=== PATIENT | male | born 1945 | race Caucasian/White ===

== ENCOUNTER 2023-10-07 19:36 | Outpatient (CLI) | payer MEDICARE | END 2023-10-07 23:59 | disposition EMS.NT | LOC: EMS 19:36 | DX: Z03.89 Encounter for observation for other suspected diseases and conditions ruled out (principal) ==

== ENCOUNTER 2023-10-08 16:34 | Emergency (ER) | payer MEDICARE ==
[2023-10-08 17:08] VITALS: O2SAT 98
--- NOTE | 2023-10-08 17:32 | ED Physician Documentation ---
History of Present Illness - Stated complaint Stated Complaint: FALL - Chief complaint Chief Complaint: Trauma Ext - History obtained from History obtained from: Patient - Additonal information Additional information: 78-year-old male who has a history of a prior stroke and recent CABG presents after a fall yesterday from his wheelchair. He is on anticoagulation.He hit his forehead on the ground, there is no loss of consciousness. He also fell onto his left hand and sustained a skin tear and some discomfort of his left hand and wrist. No other injuries during the fall. They apparently called their insurance company or care provider who advised that it is "through policy" to have them being seen in the ER after a fall therefore they are here today. Patient has not had any change in mental status, no confusion, had a mild headache yesterday but none today, no other concerns. He Review of Systems Constitutional: reports: Reviewed and negative Eyes: reports: Reviewed and negative Ears: reports: Reviewed and negative Nose: reports: Reviewed and negative Throat: reports: Reviewed and negative Cardiac: reports: Reviewed and negative Respiratory: reports: Reviewed and negative GI: reports: Reviewed and negative : reports: Reviewed and negative Skin: reports: Abrasion (s), Laceration (s) Musculoskeletal: reports: Neck pain, Extremity pain Neurologic: reports: Head injury Psychiatric: reports: Reviewed and negative Endocrine: reports: Reviewed and negative PD PAST MEDICAL HISTORY - Past Medical History Past Medical History: Yes Cardiovascular: Coronary artery disease Neuro: CVA - Past Surgical History Past Surgical History: Yes General: Appendectomy HEENT: Tonsil/Adenoidectomy - Present Medications Home Medications: Ambulatory Orders Medication Instructions Recorded Confirmed Oxycodone HCl/Aspirin [Percodan 1 each PO Q6HR PRN 05/28/13 07/22/23 Tablet] Atorvastatin [Lipitor] 20 mg PO DAILY 02/18/23 07/22/23 Furosemide [Lasix] 20 mg PO DAILY 02/18/23 07/22/23 Metoprolol Succinate [Toprol Xl] 25 mg PO DAILY 02/18/23 07/22/23 Gentamicin Sulfate See Rx Instructions .ROUTE 02/25/23 07/22/23 .COMPLEX #30 gm Doxycycline Monohydrate 100 mg PO BID 10 Days #20 cap 07/17/23 Aspirin [Adult Aspirin Regimen] 81 mg PO 07/22/23 - Allergies Allergies/Adverse Reactions: Allergies Allergy/AdvReac Type Severity Reaction Status Date / Time Sulfa (Sulfonamide Allergy Itching Verified 10/08/23 17:03 Antibiotics) - Social History Does the pt smoke?: No Smoking Status: Never smoker Does the pt drink ETOH?: No Does the pt have substance abuse?: No - Immunizations Immunizations: TDAP current <10years PD ED PE NORMAL - Vitals Vital signs reviewed: Yes - General General: Alert and oriented X 3, No acute distress, Well developed/nourished - HEENT HEENT: Atraumatic, PERRL, EOMI, Moist mucous membranes, Other (No hematoma or abrasion on the forehead or else around the scalp.) - Cardiac Cardiac: RRR, No murmur, No gallop, No rub - Respiratory Respiratory: No respiratory distress, Clear bilaterally - Derm Derm: Normal color, Warm and dry, Other (Skin tear of the dorsal surface of the left hand approximately 4 x 4.) - Extremities Extremities: Other (There is tenderness and mild swelling of the dorsal surface of the left hand as well as the left wrist. No other extremity injuries.) - Neuro Neuro: Alert and oriented X 3 Eye Opening: Spontaneous Motor: Obeys Commands Verbal: Oriented GCS Score: 15 - Psych Psych: Normal mood, Normal affect Results - Vitals Vitals: Vital Signs - 24 hr 10/08/23 10/08/23 16:53 19:02 Temperature 36.6 C Heart Rate 59 L 68 Respiratory 18 15 Rate Blood Pressure 158/87 H 180/98 H O2 Saturation 98 98 Oxygen O2 Source Room air - Labs Labs: Laboratory Tests 10/08/23 18:25 Urine Color DARK YELLOW Urine Clarity CLEAR Urine pH 6.5 Ur Specific [place] >=1.030 H Urine Protein 100 H Urine Glucose (UA) NEGATIVE Urine Ketones NEGATIVE Urine Occult Blood MODERATE H Urine Nitrite NEGATIVE Urine Bilirubin NEGATIVE Urine Urobilinogen 1 (NORMAL) Ur Leukocyte Esterase NEGATIVE Urine RBC 6-10 H Urine WBC 0-3 Ur Squamous Epith Cells RARE Squamous Urine Bacteria Rare Urine Starch PRESENT Ur Microscopic Review INDICATED Urine Culture Comments NOT INDICATED - Rads (name of study) No standard instances Relevant Findings:: Final report received PD Medical Decision Making - ED course Complexity details: reviewed results, re-evaluated patient, considered differential, d/w patient ED course: 78-year-old male presented after a fall yesterday from his wheelchair and she sustained an injury to his head was a left hand and wrist. He is well-appearing here on physical exam, afebrile nontoxic. He is on Eliquis and therefore despite a reassuring neuroexam and no obvious signs of head injury, we did obtain a CT head as well as a CT cervical spine as he has some discomfort though this is chronic for the patient. CT head and cervical spine do not show any acute findings. We also obtained a left wrist and left hand x-ray as he has a skin tear and some mild swelling of the dorsal surface of the left wrist and hand. X-rays are negative for sign of fracture. The skin tear is not amenable to sutures, and therefore I have advised home wound care instructions including keeping clean with gentle soap and water, use bacitracin and or other topical antibacterial ointment and apply nonstick gauze. This will need to heal by secondary intention. Patient states understanding. He was discharged home with his caregiver with return precautions. Departure - Departure Disposition: Home, Self Care Clinical Impression: Skin tear Contusion, hand Qualifiers: Encounter type: initial encounter Laterality: left Qualified Code(s): S60.222A - Contusion of left hand, initial encounter Head injury Qualifiers: Encounter type: initial encounter Qualified Code(s): S09.90XA - Unspecified injury of head, initial encounter Condition: Good Instructions: ED Contusion Hand, ED Contusion Scalp, ED Head Injury Closed Comments: Your head CT and cervical spine CT are stable, no signs of bleeding. I do not see any broken bones in the hand or wrist. For the skin tear, he will need to keep this clean with soap and water, and then apply an [id number] antibacterial ointment to it and nonstick gauze. This will heal slowly but will need to heal from the bottom up as there is no ability to suture this. If there are any signs of infection, return to the ER. Forms: PCP List Discharge Date/Time: 10/08/23 19:16
--- NOTE | 2023-10-08 18:13 | CT Report ---
PROCEDURE: Head WO INDICATIONS: head inj TECHNIQUE: Noncontrast 4.5 mm thick angled axial sections acquired from the foramen magnum to the vertex. For r adiation dose reduction, the following was used: automated exposure control, adjustment of mA and/or kV according to patient size. COMPARISON: None. FINDINGS: Image quality: Excellent. CSF spaces: Basal cisterns are patent. No extra-axial fluid collections. Ventricles are normal in size and shape. Brain: No midline shift. No intracranial masses or hemorrhage. No mass effect. Reynolds-white matter i nterface is normal. There cerebral volume loss for age with resultant ventricular and sulcal prominen ce. There are periventricular and deep white matter chronic small vessel ischemic changes. Atheroscle rotic calcifications are noted in the intracranial segments of the bilateral internal carotid arterie s. Extensive encephalomalacia involving the right temporal parietal and occipital lobes compatible wi th reported history of prior infarction. Skull and face: Calvarium and visualized facial bones are intact, without suspicious lesions. Sinuses: Visualized sinuses and mastoids are clear. IMPRESSION: No acute intracranial pathology. Age-related senescent changes and sequela of chronic small vessel ischemic disease. Extensive encephalomalacia involving the right cerebral hemisphere compatible with prior infarction. If there are clinical concerns for acute cerebral infarction, recommend further evaluation with brain MRI. Reviewed by: Denton Mccullough MD on 10/08/2023 6:12 PM PDT Approved by: Denton Mccullough MD on 10/08/2023 6:12 PM PDT Station ID: [id number]
--- NOTE | 2023-10-08 18:16 | CT Report ---
PROCEDURE: Cervical Spine WO INDICATIONS: head inj TECHNIQUE: Noncontrast 3 mm thick sections acquired from the skull base to the T4 level. Sagittal and coronal r eformats were then constructed. For radiation dose reduction, the following was used: automated exp osure control, adjustment of mA and/or kV according to patient size. COMPARISON: None. FINDINGS: Image quality: Diagnostic. Bones: No acute fractures or dislocations. No acute compression fractures of the vertebral bodies. C raniocervical junction is intact. C1-C2 relationship is preserved. Visualized superior ribs are intac t. Advanced multilevel cervical spondylosis most severe at C3-4, C5-6, and C6-7. Straightening of cervic al lordosis likely related to positioning and/or concurrent muscle spasms. Soft tissues: Prevertebral soft tissues are normal in thickness. No paravertebral hematomas. No ap ical pneumothoraces. IMPRESSION: No acute, displaced fracture or traumatic subluxation. Reviewed by: Denton Mccullough MD on 10/08/2023 6:15 PM PDT Approved by: Denton Mccullough MD on 10/08/2023 6:15 PM PDT Station ID: [id number]
--- NOTE | 2023-10-08 18:32 | XRAY Report ---
PROCEDURE: Hand 3+V LT INDICATIONS: fall, pain TECHNIQUE: 3 views of the hand(s) acquired. COMPARISON: None. FINDINGS: Bones: No definite fractures or dislocations. Polyarticular background degenerative changes througho ut the left hand. No suspicious bony lesions. Soft tissues: No suspicious soft tissue calcifications or masses. IMPRESSION: No definite acute osseous abnormalities. Polyarticular degenerative changes. If there is persistent clinical concern for a radiographically occult fracture, recommend immobilizat ion and repeat imaging in 10 to 14 days. Reviewed by: Denton Mccullough MD on 10/08/2023 6:30 PM PDT Approved by: Denton Mccullough MD on 10/08/2023 6:30 PM PDT Station ID: [id number]
--- NOTE | 2023-10-08 18:33 | XRAY Report ---
PROCEDURE: Wrist 3+V LT INDICATIONS: fall, pain TECHNIQUE: 3 views of the wrist were acquired. COMPARISON: None. FINDINGS: Bones: No definite fractures or dislocations. Polyarticular degenerative changes of the left wrist. Scapholunate interval is maintained. No suspicious bony lesions. Soft tissues: No suspicious soft tissue calcifications or masses. IMPRESSION: No acute bony abnormality. Polyarticular degenerative changes. If there is persistent clinical concern for a radiographically occult fracture, recommend immobilizat ion and repeat imaging in 10 to 14 days. Reviewed by: Denton Mccullough MD on 10/08/2023 6:31 PM PDT Approved by: Denton Mccullough MD on 10/08/2023 6:31 PM PDT Station ID: [id number]
[2023-10-08 18:34] LABS: BILIRUBIN,URINE NEGATIVE (NEGATIVE); GLUCOSE, URINE (UA) NEGATIVE (NEGATIVE); KETONES,URINE (UA) NEGATIVE (NEGATIVE); LEUKOCYTE ESTERASE, URINE NEGATIVE (NEGATIVE); NITRITE,URINE NEGATIVE (NEGATIVE); OCCULT BLOOD,URINE MODERATE (NEGATIVE); PH,URINE 6.5 PH (5.0-7.5); PROTEIN,URINE 100 mg/dL (NEGATIVE); UROBILINOGEN,URINE 1 (NORMAL) E.U./dL (NORMAL)
[2023-10-08 18:37] LABS: CLARITY,URINE CLEAR (CLEAR)
[2023-10-08] MEDS: BACITRACIN ZINC OINT 1 PACKET TOP STA (18:46)
[2023-10-08 18:52] LABS: BACTERIA,URINE Rare /HPF (None Seen); SQUAMOUS EPITHELIAL CELL,UR RARE Squamous (<= Few); STARCH,URINE PRESENT; WBC,URINE 0-3 /HPF (0-3)
[2023-10-08 19:18] VITALS: BP 180/98
== END 2023-10-08 19:16 | disposition home or self-care (01) ==
LOC: ED 16:34
DX: S09.90XA Unspecified injury of head, initial encounter (principal); S61.412A Laceration without foreign body of left hand, initial encounter; S60.222A Contusion of left hand, initial encounter; V00.811A Fall from moving wheelchair (powered), initial encounter; Z79.01 Long term (current) use of anticoagulants
CPT/HCPCS: 70450; 72125; 73110; 73130; 81001; 99284; A9270; 81003; 87086

== ENCOUNTER 2023-11-10 19:16 | Emergency (ER) | payer MEDICARE ==
--- NOTE | 2023-11-10 20:29 | ED Physician Documentation ---
History of Present Illness - Stated complaint Stated Complaint: WEAKNESS,CONFUSION - Chief complaint Chief Complaint: General - History obtained from History obtained from: Patient, Family - Additonal information Additional information: Patient is an 78-year-old male with past medical history of stroke few months ago that he has persistent symptoms of left-sided hemiplegia patient is living at home with his who is taking care of him. She noted for about the last week he has been more weak and confused. She mentioned this to physical therapy when they came to the house today and they called his PCP who instructed him to come to the emergency department. Patient notes that she was seen by his PCP last week and no imaging or labs were obtained at that time as his PCP felt he was at his baseline. Patient denies any headaches vision changes worsening weakness. Feels his stroke symptoms have slowly improved. He is following for chronic wound ulcers with his left leg he has an appointment this week with wound care. Patient is not currently on antibiotics but denies any fevers has been wrapping wound and placing topical antibiotics on them. PD PAST MEDICAL HISTORY - Past Medical History Cardiovascular: Coronary artery disease Neuro: CVA - Past Surgical History Past Surgical History: Yes General: Appendectomy HEENT: Tonsil/Adenoidectomy - Present Medications Home Medications: Ambulatory Orders Medication Instructions Recorded Confirmed Oxycodone HCl/Aspirin [Percodan 1 each PO Q6HR PRN 05/28/13 07/22/23 Tablet] Atorvastatin [Lipitor] 20 mg PO DAILY 02/18/23 07/22/23 Furosemide [Lasix] 20 mg PO DAILY 02/18/23 07/22/23 Metoprolol Succinate [Toprol Xl] 25 mg PO DAILY 02/18/23 07/22/23 Gentamicin Sulfate See Rx Instructions .ROUTE 02/25/23 07/22/23 .COMPLEX #30 gm Doxycycline Monohydrate 100 mg PO BID 10 Days #20 cap 07/17/23 Aspirin [Adult Aspirin Regimen] 81 mg PO 07/22/23 - Allergies Allergies/Adverse Reactions: Allergies Allergy/AdvReac Type Severity Reaction Status Date / Time No Known Drug Allergies Allergy Verified 11/10/23 19:37 - Social History Does the pt smoke?: No Smoking Status: Never smoker Does the pt drink ETOH?: No Does the pt have substance abuse?: No - Immunizations Immunizations: TDAP current <10years PD ED PE NORMAL - Vitals Vital signs reviewed: Yes - General General: Alert and oriented X 3 - HEENT HEENT: Atraumatic, PERRL, EOMI - Neck Neck: Supple, no meningeal sign - Cardiac Cardiac: RRR, No murmur, No gallop, No rub - Respiratory Respiratory: No respiratory distress - Abdomen Abdomen: Normal bowel sounds, Soft, Non tender - Male Male : Deferred - Rectal Rectal: Deferred - Neuro Neuro: Alert and oriented X 3, Other (Noticeable swelling to left upper extremity and left lower extremity with decreased strength on left arm and left leg compared to right leg on examination. Mild left-sided facial droop as well.) - Free text exam Free text exam: Left foot medial ankle shows mild erythema and swelling to left ankle and foot. Wound wrapping removed here in the emergency department good capillary refill a nd sensation intact medial malleoli are wound no obvious crepitus or fluctuance noted minimal drainage appreciated. There does appear to be a foul smell from left ankle. However pulses 2+ DP/PT full range of motion intact. Results - Vitals Vitals: Vital Signs - 24 hr 11/10/23 11/10/23 19:27 22:09 Temperature 36.5 C Heart Rate 104 H Respiratory 18 Rate Blood Pressure 151/75 H 180/96 H O2 Saturation 100 89 L Oxygen O2 Source Room air - EKG (time done) 2045 EKG releavant findings:: EKG personally interpreted by author of this note. Relevant findings are: Rate: Rate (enter#) Rhythm: Sinus bradycardia [place]: Normal Intervals: Prolonged [place] QRS: Normal Ischemia: Normal ST segments Computer interpretation: Agree with computer - Labs Labs: Laboratory Tests 11/10/23 11/10/23 11/10/23 20:41 20:41 20:41 WBC 7.0 RBC 3.56 L Hgb 10.6 L Hct 35.1 L MCV 98.6 H MCH 29.8 MCHC 30.2 L RDW 19.5 H Plt Count 324 MPV 10.4 Neut # (Auto) 4.3 Lymph # (Auto) 1.8 [place] # (Auto) 0.6 Eos # (Auto) 0.2 Baso # (Auto) 0.0 Absolute Nucleated RBC 0.00 Nucleated RBC % 0.0 PT 14.5 H INR 1.3 H Sodium 138 Potassium 4.3 Chloride 104 Carbon Dioxide 29 Anion Gap 5.0 L BUN 25 H Creatinine 1.6 H Estimated GFR (MDRD) 42 L Glucose 102 Lactic Acid Calcium 9.2 Magnesium 1.9 Total Bilirubin 0.5 AST 17 ALT 20 Alkaline Phosphatase 125 H Troponin I High Sens Total Protein 8.3 Albumin 4.2 Globulin 4.1 Albumin/Globulin Ratio 1.0 Urine Color Urine Clarity Urine pH Ur Specific [place] Urine Protein Urine Glucose (UA) Urine Ketones Urine Occult Blood Urine Nitrite Urine Bilirubin Urine Urobilinogen Ur Leukocyte Esterase Urine RBC Urine WBC Ur Squamous Epith Cells Urine Bacteria Ur Microscopic Review Urine Culture Comments 11/10/23 11/10/23 11/10/23 20:41 20:41 21:34 WBC RBC Hgb Hct MCV MCH MCHC RDW Plt Count MPV Neut # (Auto) Lymph # (Auto) [place] # (Auto) Eos # (Auto) Baso # (Auto) Absolute Nucleated RBC Nucleated RBC % PT INR Sodium Potassium Chloride Carbon Dioxide Anion Gap BUN Creatinine Estimated GFR (MDRD) Glucose Lactic Acid 0.9 Calcium Magnesium Total Bilirubin AST ALT Alkaline Phosphatase Troponin I High Sens 16.6 Total Protein Albumin Globulin Albumin/Globulin Ratio Urine Color YELLOW Urine Clarity CLEAR Urine pH 6.0 Ur Specific [place] >=1.030 H Urine Protein 30 H Urine Glucose (UA) NEGATIVE Urine Ketones NEGATIVE Urine Occult Blood TRACE-LYSE Urine Nitrite NEGATIVE Urine Bilirubin NEGATIVE Urine Urobilinogen 0.2 (NORMAL) Ur Leukocyte Esterase NEGATIVE Urine RBC 6-10 H Urine WBC 0-3 Ur Squamous Epith Cells FEW Squamous Urine Bacteria Few Ur Microscopic Review INDICATED Urine Culture Comments NOT INDICATED - Rads (name of study) left ankle x-ray Relevant Findings:: EMP independent interpretation of test PD Medical Decision Making - ED course Complexity details: reviewed old records, reviewed results ED course: Patient is an 78-year-old male presenting to the emergency department with generalized weakness. According to patient's who is providing care he suffered a stroke multiple weeks ago she is providing home cares and he is following up with physical therapy patient's symptoms have been going on for over a week. notes symptoms have been persistent she saw his PCP last week who she noted his findings. Baseline to his PCP. Patient follows up with wound care and has appointment this week for his left ankle wound. Vitals on arrival show mild tachycardia but normotensive nontachypneic afebrile. Physical exam shows wound to left ankle appears chronic minimal discharge no fluctuance or crepitus to wound pulses intact full range of motion intact however strength decreased compared to right leg appears chronic for patient given history of hemiplegia secondary to stroke. Labs obtained here in emergency department showed no significant leukocytosis mild anemia however this appears stable creatinine of 1.6 no significant electrolyte abnormalities previous creatinine at 1 however this is from multiple years ago unsure of patient's baseline. Urine analysis shows no signs of UTI and x-ray of left ankle to evaluate for severity of wound shows no gas in the wound or significant depth to the wound. CT scan of head shows chronic encephalomalacia but no acute intracranial findings. Discussed with and patient he feels safe to go home tachycardia resolved here in the emergency department and patient feels safe to go home and feels safe to bring patient home given reassuring workup. Discussed with them being portance of following up with wound care in outpatient setting keep area clean dry return with any fevers worsening pain discoloration to extremity or numbness or tingling in extremity. Return with any worsening confusion fatigue or falls. and patient are agreeable with this plan. Departure - Departure Disposition: 01 Home, Self Care Clinical Impression: Generalized weakness, Hemiplegia affecting left nondominant side, Wound of left foot Condition: Good Comments: You were seen here in the emergency department for your generalized weakness your workup here showed no acute infection no ischemic changes in the brain your EKG showed no concerning findings given your reassuring workup I feel safe sending you home keep wrapping your left foot wound and follow-up with wound ca re in the outpatient setting as he was supposed to. Return with any fevers worsening pain. Forms: PCP List
[2023-11-10 20:47] LABS: BASOPHILS % (AUTO) 0.6 %; EOSINOPHILS # (AUTO) 0.2 10^3/uL (0.0-0.7); EOSINOPHILS % (AUTO) 2.7 %; HCT - HEMATOCRIT 35.1 % (42.0-52.0); HGB - HEMOGLOBIN 10.6 g/dL (14.0-18.0); LYMPHOCYTES # (AUTO) 1.8 10^3/uL (1.5-3.5); LYMPHOCYTES % (AUTO) 26.3 %; MEAN CORPUSCULAR HEMOGLOBIN 29.8 pg (27.0-31.0); MEAN CORPUSCULAR HGB CONC 30.2 g/dL (32.0-36.0); MEAN CORPUSCULAR VOLUME 98.6 fL (80.0-94.0); MEAN PLATELET VOLUME 10.4 fL (7.4-11.4); MONOCYTES # (AUTO) 0.6 10^3/uL (0.0-1.0); MONOCYTES % (AUTO) 8.3 %; NEUTROPHILS # (AUTO) 4.3 10^3/uL (1.5-6.6); NEUTROPHILS % (AUTO) 61.8 %; PLT - PLATELET COUNT 324 10^3/uL (130-450); RED BLOOD COUNT 3.56 10^6/uL (4.70-6.10); RED CELL DISTRIBUTION WIDTH 19.5 % (12.0-15.0)
[2023-11-10 21:02] LABS: ALBUMIN 4.2 g/dL (3.2-5.5); BILIRUBIN,TOTAL 0.5 mg/dL (0.2-1.0); CALCIUM 9.2 mg/dL (8.5-10.3); CREATININE 1.6 mg/dL (0.6-1.3); MAGNESIUM 1.9 mg/dL (1.7-2.3); POTASSIUM 4.3 mmol/L (3.5-4.5); TOTAL PROTEIN 8.3 g/dL (6.4-8.9)
[2023-11-10 21:04] LABS: INR 1.3 (0.8-1.2); PT - PROTHROMBIN TIME 14.5 secs (9.9-12.6)
--- NOTE | 2023-11-10 21:28 | CT Report ---
PROCEDURE: Head WO INDICATIONS: ams hx of stroke, out side window TECHNIQUE: Noncontrast 4.5 mm thick angled axial sections acquired from the foramen magnum to the vertex. For r adiation dose reduction, the following was used: automated exposure control, adjustment of mA and/or kV according to patient size. COMPARISON: CT abdomen 10/08/2023. FINDINGS: Image quality: Excellent. CSF spaces: Basal cisterns are patent. No extra-axial fluid collections. Ventricles are normal in size and shape. Brain: Large area of hypoattenuation again seen in the right MCA territory involving the frontal, pa rietal, and temporal lobes, not significantly changed compared with CT from 10/08/2023. No mass effect . No hemorrhagic conversion. No new loss of reynolds-white matter differentiation identified No midline s hift. No intracranial masses or hemorrhage. Reynolds-white matter interface is normal. Skull and face: Calvarium and visualized facial bones are intact, without suspicious lesions. Sinuses: Visualized sinuses and mastoids are clear. IMPRESSION: 1.No acute intracranial abnormality. 2.Stable chronic encephalomalacia in the right cerebral hemisphere. Reviewed by: Arron Iglesias MD on 11/10/2023 9:26 PM PDT Approved by: Arron Iglesias MD on 11/10/2023 9:26 PM PDT Station ID: [id number]
--- NOTE | 2023-11-10 21:39 | XRAY Report ---
PROCEDURE: Ankle 3+V LT INDICATIONS: pain and swelling, concern for gas in wound TECHNIQUE: 4 views of the ankle were acquired. COMPARISON: None. FINDINGS: Bones: No acute fractures or dislocations. Ankle mortise is normally aligned. No suspicious bony l esions. Soft tissues: Skin irregularity is seen overlying the medial malleolus. There is diffuse mild soft ti ssue edema. Soft tissue calcifications are seen at the medial aspect of the distal lower leg. No soft tissue gas. IMPRESSION: Skin ulceration overlying the medial malleolus. No soft tissue gas. No radiographic signs of osteomye litis. Reviewed by: Arron Iglesias MD on 11/10/2023 9:38 PM PDT Approved by: Arron Iglesias MD on 11/10/2023 9:38 PM PDT Station ID: [id number]
[2023-11-10 21:40] LABS: BILIRUBIN,URINE NEGATIVE (NEGATIVE); GLUCOSE, URINE (UA) NEGATIVE (NEGATIVE); KETONES,URINE (UA) NEGATIVE (NEGATIVE); LEUKOCYTE ESTERASE, URINE NEGATIVE (NEGATIVE); NITRITE,URINE NEGATIVE (NEGATIVE); OCCULT BLOOD,URINE TRACE-LYSE (NEGATIVE); PROTEIN,URINE 30 mg/dL (NEGATIVE); UROBILINOGEN,URINE 0.2 (NORMAL) E.U./dL (NORMAL)
[2023-11-10 21:42] LABS: CLARITY,URINE CLEAR (CLEAR)
[2023-11-10 21:53] LABS: SQUAMOUS EPITHELIAL CELL,UR FEW Squamous (<= Few); WBC,URINE 0-3 /HPF (0-3)
[2023-11-10 21:54] LABS: BACTERIA,URINE Few /HPF (None Seen)
[2023-11-10] MEDS: traMADol 50 MG TABLET PO STA (22:19)
[2023-11-10 22:39] VITALS: BP 174/87; O2SAT 95
== END 2023-11-10 22:34 | disposition home or self-care (01) ==
LOC: ED 19:16
DX: R53.1 Weakness (principal); I69.354 Hemiplegia and hemiparesis following cerebral infarction affecting left non-dominant side; L97.929 Non-pressure chronic ulcer of unspecified part of left lower leg with unspecified severity
CPT/HCPCS: 36415; 70450; 73610; 80053; 81001; 83605; 83735; 84484; 85025; 85610; 93005; 99283; 99284; A9270; 81003; 87086